=== PATIENT | female | born 1955 | race Caucasian/White ===

== ENCOUNTER 2020-10-19 16:24 | Emergency (ER) | payer BC ==
[2020-10-19] MEDS ORDERED: Acetaminophen 500 MG Tab PO ONE (16:41)
[2020-10-19] MEDS ORDERED: traMADol 50 MG Tab PO ONE (16:41)
[2020-10-19] MEDS ORDERED: Acetaminophen/oxyCODONE 325-5 MG Tab PO PRN (17:44)
[2020-10-19] MEDS ORDERED: Gabapentin 600 MG Tab PO STA (17:44)
--- NOTE | 2020-10-19 17:52 | EDM.PDOC ---
ED HPI GENERAL MEDICAL PROBLEM - General Chief Complaint: Back Pain or Injury Stated Complaint: back pain Time Seen by Provider: 10/19/20 17:00 Source of Information: Reports: Patient History Limitations: Reports: No Limitations - History of Present Illness INITIAL COMMENTS - FREE TEXT/NARRATIVE: Patient presented to the ED because of low back pain radiating to the right buttock. The pain is sharp,9/10, worse with movements. She was seen in the clinic today and was prescribed flexeril 10 and miloxicam but didn't help with the pain - Related Data Allergies Allergy/AdvReac Type Severity Reaction Status Date / Time Sulfa (Sulfonamide Allergy Hives Verified 10/19/20 16:43 Antibiotics) Home Meds: Home Meds Acetaminophen/oxyCODONE [Percocet 325-5 MG] 1 tab PO Q4H PRN #15 tab 10/19/20 [Rx] Gabapentin [Neurontin] 300 mg PO Q8H #30 capsule 10/19/20 [Rx] ED ROS GENERAL - Review of Systems Review Of Systems: See Below Constitutional: Reports: No Symptoms HEENT: Reports: No Symptoms Respiratory: Reports: No Symptoms Cardiovascular: Reports: No Symptoms Endocrine: Reports: No Symptoms GI/Abdominal: Reports: No Symptoms : Reports: No Symptoms Musculoskeletal: Reports: Back Pain Skin: Reports: No Symptoms Neurological: Reports: No Symptoms Psychiatric: Reports: No Symptoms ED EXAM,LOWER BACK PAIN/INJURY - Physical Exam Exam: See Below Exam Limited By: No Limitations General Appearance: Alert, No Apparent Distress Ears: Normal External Exam, Normal Canal Nose: Normal Inspection, Normal Mucosa Throat/Mouth: Normal Inspection, Normal Lips, Normal Teeth Head: Atraumatic, Normocephalic Neck: Normal Inspection, Supple, Non-Tender, Full Range of Motion Respiratory/Chest: No Respiratory Distress, Lungs Clear, Normal Breath Sounds Cardiovascular: Normal Peripheral Pulses, Regular Rate, Rhythm, No Edema, No Gallop, No JVD, No Murmur GI/Abdominal: Normal Bowel Sounds, Soft, Non-Tender, No Organomegaly Back Exam: Muscle Spasm, Vertebral Tenderness Extremities: Normal Inspection Neurological: Alert, Normal Mood/Affect, Normal Dorsiflexion Course - Vital Signs Text/Narrative:: Tramadol 100 mg PO x1 Tylenol 1000 mg po x1 percocet 5/325, 2 PO x1 Gabapentin 300 mg, 2 PO x1 Last Recorded V/S: Last Vital Signs Temp 36.7 C 10/19/20 16:32 Pulse 68 10/19/20 16:32 Resp 16 10/19/20 16:32 BP 132/68 10/19/20 16:32 Pulse Ox 98 10/19/20 16:32 - Orders/Labs/Meds Meds: Medications Discontinued Medications Generic Name Dose Route Start Last Admin Trade Name Ifeanyiq PRN Reason Stop Dose Admin Acetaminophen 1,000 mg 10/19/20 16:41 10/19/20 16:46 Acetaminophen 500 Mg Tab PO 10/19/20 16:42 1,000 mg ONETIME ONE Administration Gabapentin 600 mg 10/19/20 17:44 10/19/20 17:55 Gabapentin 600 Mg Tab PO 10/19/20 17:45 600 mg NOW STA Administration Oxycodone/Acetaminophen 2 tab 10/19/20 17:44 10/19/20 17:55 Acetaminophen/Oxycodone 325-5 Mg Tab PO 2 tab ONETIME PRN Administration Pain Tramadol HCl 100 mg 10/19/20 16:41 10/19/20 16:47 Tramadol 50 Mg Tab PO 10/19/20 16:42 100 mg ONETIME ONE Administration Departure - Departure Time of Disposition: 17:50 Disposition: Home, Self-Care 01 Condition: Good Clinical Impression: Radiculopathy, Sciatica - Discharge Information Prescriptions: Gabapentin [Neurontin] 300 mg PO Q8H #30 capsule Acetaminophen/oxyCODONE [Percocet 325-5 MG] 1 tab PO Q4H PRN #15 tab PRN Reason: Pain Instructions: Radicular Pain, Sciatica, [id number] Referrals: Yulissa Campbell PA [Primary Care Provider] - Forms: ED Department Discharge Additional Instructions: Please read discharge instructions on radiculopathy and Sciatica Take all these medications at the same time for better pain relief: Ibuprofen 800 mg, Tylenol 1000 mg, flexeril 10 mg, gabapentin 300 mg every 8 hours for pain and spasm Percocet 5/325, 1-2 tablets every 4-6 hors as needed for severe pain Follow up as needed Sepsis Event Note (ED) - Evaluation Sepsis Screening Result: No Definite Risk - Focused Exam Vital Signs: Vital Signs Temp Pulse Resp BP Pulse Ox 10/19/20 16:32 36.7 C 68 16 132/68 98
== END 2020-10-19 18:05 | disposition home or self-care (01) ==
LOC: FB.ED 16:24
DX: M54.16 Radiculopathy, lumbar region (principal); Z88.2 Allergy status to sulfonamides
CPT/HCPCS: 99283; A9270-GY

== ENCOUNTER → 2022-03-26 | Day surgery (SDC) | payer MEDICARE, OTHER ==
[~2022-03-26] MED LIST: Lactated Ringers 1,000 ML IV SCH; Propofol 200 MG/20 ML SDV IV ONE; Sodium Chloride 0.9% 10 ML Syringe FLUSH PRN
== END ==
LOC: FB.SDS 08:16
PROVIDERS: ATTEND Surgery
DX: Z12.11 Encounter for screening for malignant neoplasm of colon (principal); D12.6 Benign neoplasm of colon, unspecified; F41.9 Anxiety disorder, unspecified; F32.A Depression, unspecified; E66.9 Obesity, unspecified; E78.5 Hyperlipidemia, unspecified; M19.90 Unspecified osteoarthritis, unspecified site; E07.9 Disorder of thyroid, unspecified; Z88.2 Allergy status to sulfonamides; Z90.49 Acquired absence of other specified parts of digestive tract; Z98.890 Other specified postprocedural states; Z79.890 Hormone replacement therapy; Z68.37 Body mass index [BMI] 37.0-37.9, adult
CPT/HCPCS: 00812; 45384; 88305; J2704; J7120